=== PATIENT | female | born 1960 | race African-American/Black ===

== ENCOUNTER 2025-03-10 21:43 | Emergency (ER) | payer MEDICARE, OTHER ==
[~2025-03-10] VITALS: Ht 160 cm; Wt 46.2 kg
[2025-03-10 21:54] VITALS: TEMP 36.7; O2SAT 99
[2025-03-10 22:34] LABS: BASOPHILS % 0.2 % (0.0-2.0); EOSINOPHILS % 0.2 % (0.0-5.0); HEMATOCRIT. 43.4 % (36.0-48.0); LYMPHOCYTES % 15.1 % (20.0-50.0); MEAN CORPUSCULAR HEMOGLOBIN 31.8 pg (28.0-32.0); MEAN CORPUSCULAR HGB CONC 34.5 g/dL (31.0-37.0); MEAN CORPUSCULAR VOLUME 92.2 fL (81.0-99.0); MEAN PLATELET VOLUME 7.4 fl (7.4-10.4); MONOCYTES % 5.8 % (2.0-8.0); NEUTROPHILS % 78.7 % (40.0-76.0); PLATELET 471 x1000/uL (130-400); RED BLOOD CELL COUNT 4.71 mill/uL (4.2-5.4); RED CELL DISTRIBUTION WIDTH 12.9 % (11.6-14.6); WHITE BLOOD COUNT 17.7 x1000/uL (4.5-11.0)
[2025-03-10 22:41] LABS: CHLORIDE 95 mEq/L (98-107); POTASSIUM 3.7 mEq/L (3.5-5.1); SODIUM 130 mEq/L (136-145)
[2025-03-10 22:42] LABS: CARBON DIOXIDE 27 mEq/L (21-32)
[2025-03-10 22:43] LABS: CALCIUM 10.1 mg/dL (8.7-10.4)
[2025-03-10 22:47] LABS: CREATININE 0.6 mg/dL (0.6-1.0); GLUCOSE 98 mg/dL (70-105); UREA NITROGEN BLOOD 7 mg/dL (9-23)
[2025-03-10 22:48] LABS: TROPONIN I HIGH SENSITIVITY 25 ng/L (3.0-34)
[2025-03-11 06:15] LABS: TROPONIN I HIGH SENSITIVITY 19 ng/L (3.0-34)
[2025-03-11] MEDS ORDERED: ASPI-1497 MT (06:35)
[2025-03-11] MEDS: ASPIRIN 81MG TABLET PO ONE (06:48)
[2025-03-11 06:49] VITALS: BP 165/84; PULSE 106; RESP 16; O2SAT 99
[2025-03-11] MEDS ORDERED: IBUP-2029 MT (22:33)
[2025-03-11] MEDS ORDERED: CYCL10TA21 MT (22:33)
== END 2025-03-11 06:52 | disposition home or self-care (01) ==
LOC: ER 21:43
DX: R07.89 Other chest pain (principal); F17.200 Nicotine dependence, unspecified, uncomplicated; F17.290 Nicotine dependence, other tobacco product, uncomplicated; E03.9 Hypothyroidism, unspecified; Z98.890 Other specified postprocedural states; Z79.899 Other long term (current) drug therapy; Z79.82 Long term (current) use of aspirin
CPT/HCPCS: 36415; 71045; 80048; 84484; 85025; 93005; 99285; 99406

== ENCOUNTER 2025-03-11 21:24 | Emergency (ER) | payer MEDICARE, OTHER ==
[~2025-03-11] VITALS: Ht 160 cm; Wt 45.2 kg
[~2025-03-11 21:24] MED LIST: ASPI-1497 MT
[2025-03-11 22:02] VITALS: TEMP 36.7; O2SAT 100
[2025-03-11 22:04] VITALS: O2SAT 98
[2025-03-11] MEDS ORDERED: CYCL10TA21 MT (22:33)
[2025-03-11] MEDS ORDERED: IBUP-2029 MT (22:33)
[2025-03-11 22:51] VITALS: BP 161/88; PULSE 96; RESP 16
[2025-03-11] MEDS: KETOROLAC 30MG/ML VIAL IM ONE (22:51)
== END 2025-03-11 22:52 | disposition home or self-care (01) ==
LOC: ER 21:24
DX: M54.50 Low back pain, unspecified (principal); M51.372 Other intervertebral disc degeneration, lumbosacral region with discogenic back pain and lower extremity pain; Z79.82 Long term (current) use of aspirin; Z79.899 Other long term (current) drug therapy
CPT/HCPCS: 99283; 96372; J1885

== ENCOUNTER 2025-03-12 00:05 | Emergency (ER) | payer MEDICARE, OTHER ==
[~2025-03-12] VITALS: Ht 154.9 cm; Wt 45.1 kg
[~2025-03-12 00:05] MED LIST changes: +CYCL10TA21 MT; +IBUP-2029 MT
[2025-03-12 00:14] VITALS: O2SAT 100
[2025-03-12 00:46] VITALS: BP 144/74; PULSE 87; RESP 16; TEMP 36.9; O2SAT 98
[2025-03-12 03:26] LABS: BASOPHILS % 0.6 % (0.0-2.0); DIFFERENTIAL COMMENT 0; EOSINOPHILS % 0.5 % (0.0-5.0); HEMATOCRIT. 40.9 % (36.0-48.0); LYMPHOCYTES % 20.9 % (20.0-50.0); MEAN CORPUSCULAR HEMOGLOBIN 31.3 pg (28.0-32.0); MEAN CORPUSCULAR HGB CONC 34.1 g/dL (31.0-37.0); MEAN CORPUSCULAR VOLUME 91.8 fL (81.0-99.0); MEAN PLATELET VOLUME 7.5 fl (7.4-10.4); MONOCYTES % 7.9 % (2.0-8.0); NEUTROPHILS % 70.1 % (40.0-76.0); PLATELET 430 x1000/uL (130-400); RED BLOOD CELL COUNT 4.46 mill/uL (4.2-5.4); RED CELL DISTRIBUTION WIDTH 12.8 % (11.6-14.6); WHITE BLOOD COUNT 12.3 x1000/uL (4.5-11.0)
[2025-03-12 03:39] LABS: CARBON DIOXIDE 28 mEq/L (21-32); CHLORIDE 91 mEq/L (98-107); POTASSIUM 3.5 mEq/L (3.5-5.1); SODIUM 126 mEq/L (136-145)
[2025-03-12 03:40] LABS: CALCIUM 10.2 mg/dL (8.7-10.4)
[2025-03-12 03:44] LABS: CREATININE 0.7 mg/dL (0.6-1.0)
[2025-03-12 03:45] LABS: ETHANOL BLOOD < 10 mg/dL (<10); GLUCOSE 106 mg/dL (70-105); UREA NITROGEN BLOOD 11 mg/dL (9-23)
[2025-03-12 03:47] LABS: ACETAMINOPHEN < 2 ug/mL (10-30)
[2025-03-12 03:50] LABS: THYROID STIMULATING HORMONE 0.51 uIU/mL (0.55-4.78)
[2025-03-12 04:57] LABS: CLARITY URINE CLEAR (CLEAR); COLOR URINE YELLOW (YELLOW); GLUCOSE URINE NEGATIVE (NEGATIVE); KETONES URINE 3+ (NEGATIVE); LEUKOCYTE ESTERASE URINE NEGATIVE (NEGATIVE); NITRITE URINE NEGATIVE (NEGATIVE); OCCULT BLOOD URINE NEGATIVE (NEGATIVE); PROTEIN URINE 1+ (NEGATIVE); SPECIFIC GRAVITY URINE 1.019 (1.005-1.030)
[2025-03-12 05:02] LABS: *AMPHETAMINES SCREEN URINE NEGATIVE (NEGATIVE); *BARBITURATES SCREEN URINE NEGATIVE (NEGATIVE); *BENZODIAZEPINES SCREEN URINE NEGATIVE (NEGATIVE); *COCAINE SCREEN URINE NEGATIVE (NEGATIVE); CANNABINOID URINE SCREEN PRESUMPTIVE POSITIVE (NEGATIVE); ECSTASY MDMA SCREEN URINE NEGATIVE (NEGATIVE); METHADONE URINE SCREEN NEGATIVE (NEGATIVE); OPIATES URINE SCREEN PRESUMPTIVE POSITIVE (NEGATIVE); PHENCYCLIDINE URINE SCREEN NEGATIVE (NEGATIVE)
[2025-03-12 09:17] LABS: MUCUS URINE TRACE /lpf (< = 2+); SQUAMOUS EPITHELIAL CELL URINE RARE /lpf (RARE/1+)
[2025-03-12 09:18] LABS: BACTERIA URINE TRACE; CALCIUM OXALATE CRYSTALS URINE 1+ /lpf; RBC URINE NONE SEEN /hpf (0-2); WBC URINE 0-2 /hpf (0-2)
== END 2025-03-12 05:20 | disposition left against medical advice (07) ==
LOC: ER 00:05
DX: R07.89 Other chest pain (principal); F12.10 Cannabis abuse, uncomplicated; F11.90 Opioid use, unspecified, uncomplicated; E03.9 Hypothyroidism, unspecified; Z98.890 Other specified postprocedural states; Z79.899 Other long term (current) drug therapy; Z79.82 Long term (current) use of aspirin
CPT/HCPCS: 36415; 80048; 80305; 80307; 80320; 80329; 81003; 84443; 85025; 99283; G0480